=== PATIENT | female | born 1975 | race Caucasian/White ===

== ENCOUNTER 2016-10-20 18:32 | Emergency (ER) | payer OTHER ==
[~2016-10-20] VITALS: Ht 165.1 cm; Wt 75.0 kg
[~2016-10-20 18:32] MED LIST: DICL75TA PO; ROBA750T PO
[2016-10-20 18:33] VITALS: BP 137/85; PULSE 98; RESP 26; TEMP 98.7; O2SAT 98
[2016-10-20 18:48] VITALS: BP 119/75; PULSE 84; RESP 24; O2SAT 97
[2016-10-20] MEDS ORDERED: KETOROLAC TROMETHAMINE 60 MG/2 ML (IM) VIAL IM ONE (19:00)
[2016-10-20] MEDS ORDERED: ORPHENADRINE INJ 60 MG/2 ML AMP IM ONE (19:00)
[2016-10-20] MEDS ORDERED: SODIUM CHLORIDE 0.9% FLUSH 10 ML FLUSH IVF PRN (19:00)
[2016-10-20] MEDS ORDERED: predniSONE 20 MG TAB PO ONE (19:00)
--- NOTE | 2016-10-20 19:21 | PD ---
HPI Chief Complaint: Pain: Acute or Chronic Time Seen by Provider: 18:50 Travel History International Travel<30 days: No Contact w/Intl Traveler<30days: No Traveled to known affect area: No History of Present Illness HPI 41-year-old female presents to the emergency department for evaluation of right thoracic back pain that started yesterday. She reports is worse with deep breathing and movement. Patient states she still, the pain is better. She is taking, [id number]. She also reports cough and congestion. No fevers. No abdominal pain. No nausea, vomiting, diarrhea. No recent travel or surgery. No history DVT/PE. She is not on control pills. No leg edema. No hemoptysis. No history of cancer. Patient is not tachycardic or hypoxic on my exam. She is a current tobacco smoker. She denies any chronic medical problems or taking any prescribed medications. 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) ?: Not LMP: now : 3 Para: 1 Miscarriage: 1 : 1 Dilation and Curettage (D&C): Yes (SEP 2010) Past Surgical History Surgical History: No Previous Surgery Gynecologic Surgery: Yes (D AND C THIS ADMISSION 09/18/10) Social History Alcohol Use: No Tobacco Use: Yes (1 PPD) Substance Use: No (uses but wont state what) Allergies-Medications (Allergen,Severity, Reaction): Coded Allergies: Sulfa (Sulfonamide Antibiotics) (Unverified Allergy, Intermediate, Rash, ) sulfamethoxazole (Unverified Allergy, Intermediate, RASH, 10/20/16) trimethoprim (Unverified Allergy, Intermediate, RASH, 10/20/16) Reported Meds & Prescriptions Reported Meds & Active Scripts Active No Active Prescriptions or Reported Medications Review of Systems Except as stated in HPI: all other systems reviewed are Neg Physical Exam Narrative GENERAL: Well-nourished, well-developed female patient, ambulatory. Afebrile. SKIN: Focused skin assessment warm/dry. HEAD: Normocephalic. Atraumatic. EYES: No scleral icterus. No injection or drainage. NECK: Supple, trachea midline. No JVD or lymphadenopathy. CARDIOVASCULAR: Regular rate and rhythm without murmurs, gallops, or rubs. RESPIRATORY: Breath sounds equal bilaterally. No accessory muscle use. Lungs sounds with expiratory wheezes noted throughout. GASTROINTESTINAL: Abdomen soft, non-tender, nondistended. MUSCULOSKELETAL: No cyanosis, or edema. BACK: Nontender without obvious deformity. No CVA tenderness. Patient has tenderness to right thoracic back to palpation. Data Data Last Documented VS Vital Signs Date Time Temp Pulse Resp B/P (MAP) Pulse Ox O2 Delivery O2 Flow Rate FiO2 10/20/16 18:48 84 24 119/75 (90) 97 Room Air 10/20/16 18:33 98.7 Orders Orders Chest, Single Ap (10/20/16 18:55) Prednisone (Deltasone) (10/20/16 19:00) Albuterol-Ipratropium Neb (Duoneb Neb) (10/20/16 19:00) Sodium Chloride 0.9% Flush (Ns Flush) (10/20/16 19:00) Ketorolac Inj (Toradol Inj) (10/20/16 19:00) Orphenadrine Inj (Norflex Inj) (10/20/16 19:00) MDM Medical Decision Making Medical Screen Exam Complete: Yes Emergency Medical Condition: Yes Medical Record Reviewed: Yes Interpretation(s) chest x-ray - CONCLUSION: No acute disease. Differential Diagnosis Muscle strain versus muscle spasm versus pneumonia versus pneumothorax Narrative Course 41-year-old female presents to the emergency department for right thoracic back pain that is worse with movement. Patient does have expiratory wheezes noted on exam. Patient is perk negative. Chest x-ray is ordered and pending. Patient is given DuoNeb 3, prednisone 60 mg by mouth, Toradol 60 mg IM, Norflex 60 mg IM. Chest x-ray shows no acute disease. Patient was discharged prescription for prednisone, albuterol inhaler, ibuprofen , Robaxin. She is encouraged to follow-up with her primary care physician. She is return here for any acute worsening of symptoms. Patient verbalizes agreement and understanding. The patient was discharged in stable condition with instructions, including return instructions and follow up instructions. Diagnosis Primary Impression: Upper respiratory infection Qualified Codes: J06.9 - Acute upper respiratory infection, unspecified Additional Impression: Muscle strain Referrals: Primary Care Physician call for appointment Patient Instructions: General Instructions, Muscle Strain (ED), Upper Respiratory Infection (ED) Additional Instructions: Take prednisone as directed. Start this tomorrow. Use your albuterol inhaler as directed as needed for SOB/wheezing.\ Take ibuprofen as instructed as needed with food for pain. Take Robaxin as directed as needed Follow-up with your primary care physician. Return to the emergency department for any acute worsening of symptoms. Med/Other Pt SpecificInfo: Prescription(s) given Scripts Ibuprofen (Ibuprofen) 600 Mg Tab 600 MG PO TID Y for PAIN SCALE 1 TO 10, #21 TAB 0 Refills Prov: Leigha Sr 10/20/16 Methocarbamol (Robaxin) 750 Mg Tab 750 MG PO Q8HR Y for MUSCLE SPASM, #21 TAB 0 Refills Prov: Leigha Sr 10/20/16 Albuterol 18 GM Inh (Ventolin Hfa 18 GM Inh) 90 Mcg/Act Aer 1 PUFF INH Q4H Y for SHORTNESS OF BREATH, #1 INHALER 0 Refills Prov: Leigha Sr 10/20/16 Prednisone (Prednisone) 20 Mg Tab 40 MG PO DAILY for 5 Days, TAB 0 Refills Prov: Leigha Sr 10/20/16 Disposition: 01 DISCHARGE HOME Condition: Stable Leigha Sr Oct 20, 2016 19:21
--- NOTE | 2016-10-20 19:22 | RADRPT ---
EXAM DATE/TIME: 10/20/2016 18:52 [facility] COMPARISON: No previous studies available for comparison. INDICATIONS : Chest and back pain. MEDICAL HISTORY : History of TB. SURGICAL HISTORY : None. ENCOUNTER: Initial ACUITY: 1 day PAIN SCORE: 10/10 LOCATION: Right chest FINDINGS: A single view of the chest demonstrates the lungs to be symmetrically aerated without evidence of mas s, infiltrate or effusion. The cardiomediastinal contours are unremarkable. Osseous structures are intact. CONCLUSION: No acute disease. Krishan Cortes MD on October 20, 2016 at 19:21 Board Certified Radiologist. This report was verified electronically.
[2016-10-20] MEDS: RESP: ALBUTEROL 2.5 MG/IPRATROPIUM 0.5 MG NEB (SCH) INH (19:58)
[2016-10-20] MEDS ORDERED: ROBA750T PO (21:02)
[2016-10-20] MEDS ORDERED: IBUP-232 PO (21:02)
[2016-10-20] MEDS ORDERED: VENTAER INH (21:02)
[2016-10-20] MEDS ORDERED: PRED20 PO (21:02)
== END 2016-10-20 21:51 | disposition home or self-care (01) ==
LOC: NEPD 18:32
DX: J06.9 Acute upper respiratory infection, unspecified (principal); F17.200 Nicotine dependence, unspecified, uncomplicated; M54.6 Pain in thoracic spine; R05 Cough
CPT/HCPCS: 71010; 94640; 94664; 96372; 99285; J1885; J2360; J7512

== ENCOUNTER 2017-02-02 22:52 | Emergency (ER) | payer OTHER ==
[~2017-02-02] VITALS: Ht 165.1 cm; Wt 78.0 kg
[~2017-02-02 22:52] MED LIST changes: -DICL75TA PO; +IBUP-232 PO; +PRED20 PO; +VENTAER INH
[2017-02-02 22:54] VITALS: BP 120/69; PULSE 94; RESP 18; TEMP 98.4; O2SAT 99
[2017-02-02] MEDS ORDERED: predniSONE 20 MG TAB PO ONE (23:30)
[2017-02-02] MEDS ORDERED: SODIUM CHLORIDE 0.9% FLUSH 10 ML FLUSH IVF PRN (23:30)
[2017-02-02] MEDS ORDERED: AZITHROMYCIN 250 MG TAB PO ONE (23:30)
[2017-02-02] MEDS: RESP: ALBUTEROL 2.5 MG/IPRATROPIUM 0.5 MG NEB (SCH) INH (23:43)
--- NOTE | 2017-02-02 23:59 | RADRPT ---
EXAM DATE/TIME: 02/02/2017 23:40 [facility] COMPARISON: CHEST SINGLE AP, October 20, 2016, 18:52. INDICATIONS : Some remaining congestion and shortness of breath as patient is recovering from flu like illness. MEDICAL HISTORY : None. SURGICAL HISTORY : None. ENCOUNTER: Initial ACUITY: 1 week PAIN SCORE: 0/10 LOCATION: Bilateral chest FINDINGS: The lungs are clear without infiltrate, nodule, or mass. There is no appreciable pleural effusion fo r technique. Heart and mediastinum are unremarkable. CONCLUSION: No acute cardiopulmonary disease. Madelyn Izaguirre MD on February 02, 2017 at 23:56 Board Certified Radiologist. This report was verified electronically.
[2017-02-03] MEDS ORDERED: VENTAER INH (00:10)
[2017-02-03] MEDS ORDERED: PRED20 PO (00:10)
[2017-02-03] MEDS ORDERED: AZIT250T3 PO (00:10)
--- NOTE | 2017-02-03 00:10 | PD ---
HPI Chief Complaint: Respiratory Symptoms Time Seen by Provider: 23:22 Travel History International Travel<30 days: No Contact w/Intl Traveler<30days: No Traveled to known affect area: No History of Present Illness HPI A 41-year-old woman presents to the emergency department complaining of worsening shortness of breath and URI symptoms ongoing for the past week. She has some nausea vomiting diarrhea associated with them. Flulike symptoms were somewhat improving but her cough cold symptoms and shortness of breath of and steadily worsening since onset. She is a history tobacco use. She's had one previous episode of reactive airway disease. No other complaints. History Past Medical History Narrative Medical Anxiety/depression History tobacco use : 3 Para: 1 Dilation and Curettage (D&C): Yes (SEP 2010) Social History Alcohol Use: Yes ([facility]) Tobacco Use: Yes (1 PPD-HASN'T SMOKED IN 1 WEEK) Allergies-Medications (Allergen,Severity, Reaction): Coded Allergies: Sulfa (Sulfonamide Antibiotics) (Unverified Allergy, Intermediate, Rash, 02/02/17) sulfamethoxazole (Unverified Allergy, Intermediate, RASH, 02/02/17) trimethoprim (Unverified Allergy, Intermediate, RASH, 02/02/17) Reported Meds & Prescriptions Reported Meds & Active Scripts Active Ibuprofen 600 Mg Tab 600 Mg PO TID PRN Robaxin (Methocarbamol) 750 Mg Tab 750 Mg PO Q8HR PRN Ventolin Hfa 18 GM Inh (Albuterol Sulfate) 90 Mcg/Act Aer 1 Puff INH Q4H PRN Prednisone 20 Mg Tab 40 Mg PO DAILY 5 Days Review of Systems Except as stated in HPI: all other systems reviewed are Neg Physical Exam Narrative GENERAL: Well-appearing 41-year-old woman, mild respiratory distress. SKIN: Focused skin assessment warm/dry. HEAD: Atraumatic. Normocephalic. EYES: Pupils equal and round. No scleral icterus. No injection or drainage. ENT: No nasal bleeding or discharge. Mucous membranes pink and moist. NECK: Trachea midline. No JVD. CARDIOVASCULAR: Regular rate and rhythm. No murmur appreciated. RESPIRATORY: Mild respiratory distress. Moderate wheezing throughout the posterior lung wright. Scattered rhonchi inferiorly. MUSCULOSKELETAL: No obvious deformities. No edema. NEUROLOGICAL: Awake and alert. No obvious cranial nerve deficits. Motor grossly within normal limits. Normal speech. PSYCHIATRIC: Appropriate mood and affect; insight and judgment normal. Data Data Last Documented VS Vital Signs Date Time Temp Pulse Resp B/P (MAP) Pulse Ox O2 Delivery O2 Flow Rate FiO2 02/02/17 22:54 98.4 94 18 120/69 (86) 99 Room Air Orders Orders Influenzae A/B Antigen (02/02/17 23:29) Chest, Single Ap (02/02/17 23:29) Sodium Chloride 0.9% Flush (Ns Flush) (02/02/17 23:30) Albuterol-Ipratropium Neb (Duoneb Neb) (02/02/17 23:30) Prednisone (Deltasone) (02/02/17 23:30) Azithromycin (Zithromax) (02/02/17 23:30) [facility] Medical Decision Making Medical Screen Exam Complete: Yes Emergency Medical Condition: Yes Interpretation(s) Chest x-ray negative Differential Diagnosis Pneumonia, COPD exacerbation, bronchitis, URI, influenza, other Narrative Course 41 year-old woman, cough cold symptoms for the past week, no worsening shortness of breath. Moderate wheezing and rhonchi exam. Chest x-rays negative. Patient refuses influenza test. Recommend supportive treatment for bronchitis or reactive airway disease. Diagnosis Primary Impression: Bronchitis Additional Impression: Reactive airway disease Additional Instructions: Use albuterol inhaler every 4-6 hours until symptoms resolve. Take steroids as prescribed. Take Azithromycin as prescribed. Follow-up with your primary doctor in the next 2-4 days. Return to the emergency department pre-worsening chest pain, trouble breathing, or any other new or worsening symptoms. Med/Other Pt SpecificInfo: Prescription(s) given Scripts Azithromycin (Azithromycin) 250 Mg Tab 250 MG PO DAILY for Infection for 4 Days, #4 TAB 0 Refills Prov: Cornelius Mcmahon MD 02/03/17 Albuterol 18 GM Inh (Ventolin Hfa 18 GM Inh) 90 Mcg/Act Aer 1 PUFF INH Q4H Y for SHORTNESS OF BREATH, #1 INHALER 0 Refills Prov: Cornelius Mcmahon MD 02/03/17 Prednisone (Prednisone) 20 Mg Tab 60 MG PO DAILY for 5 Days, #15 TAB 0 Refills Prov: Cornelius Mcmahon MD 02/03/17 Disposition: 01 DISCHARGE HOME Condition: Stable Cornelius Mcmahon MD Feb 03, 2017 00:10
== END 2017-02-03 00:24 | disposition home or self-care (01) ==
LOC: NEPE 22:52
DX: J45.909 Unspecified asthma, uncomplicated (principal); F17.200 Nicotine dependence, unspecified, uncomplicated
CPT/HCPCS: 71010; 94640; 94664; 99284; J7512

== ENCOUNTER 2017-05-21 11:18 | Emergency (ER) | payer OTHER ==
[~2017-05-21] VITALS: Ht 165.1 cm; Wt 74.0 kg
[~2017-05-21 11:18] MED LIST changes: +AZIT250T3 PO
[2017-05-21 11:56] VITALS: BP 129/75; PULSE 94; RESP 16; TEMP 98.2; O2SAT 98
== END 2017-05-21 13:00 | disposition left against medical advice (07) ==
LOC: NETRI 11:18
DX: R10.9 Unspecified abdominal pain (principal); Z53.21 Procedure and treatment not carried out due to patient leaving prior to being seen by health care provider
CPT/HCPCS: 99281